=== PATIENT | male | born 1965 | race Caucasian/White ===

== ENCOUNTER 2018-03-10 17:05 | Emergency (ER) | payer BC ==
--- NOTE | 2018-03-10 17:59 | EDM.PDOC ---
ED HPI GENERAL MEDICAL PROBLEM - General Stated Complaint: fishhook Time Seen by Provider: 03/10/18 17:33 Source of Information: Reports: Patient History Limitations: Reports: No Limitations - History of Present Illness INITIAL COMMENTS - FREE TEXT/NARRATIVE: This is a 52yo M here for a left thumb fish hook injury. This happened a few hours ago. He denies any current issues and has had a recent tetanus within the past 5 years. Onset: Today, Sudden Location: Reports: Upper Extremity, Left Improves with: Reports: None Worsens with: Reports: Movement Associated Symptoms: Reports: No Other Symptoms Left Hand Pain Score (Numeric/FACES): 1 - Related Data Allergies Allergy/AdvReac Type Severity Reaction Status Date / Time Sulfa (Sulfonamide Allergy Rash Verified 03/10/18 17:15 Antibiotics) Home Meds: Home Meds Aspirin [Lo-Dose Aspirin EC] 81 mg PO DAILY 03/10/18 [History] Simvastatin [Zocor] 20 mg PO DAILY 03/10/18 [History] Review of Systems - Review of Systems Review Of Systems: ROS reveals no pertinent complaints other than HPI. ED EXAM, GENERAL - Physical Exam Exam: See Below Exam Limited By: No Limitations General Appearance: Alert, WD/WN, No Apparent Distress Nose: Normal Inspection Throat/Mouth: Normal Inspection Respiratory/Chest: No Respiratory Distress Cardiovascular: Normal Peripheral Pulses, Regular Rate, Rhythm GI/Abdominal: Normal Bowel Sounds Back Exam: Normal Inspection Extremities: Normal Inspection Neurological: Alert, Oriented, CN II-XII Intact Skin Exam: Wound/Incision ED TRAUMA EXTREMITY PROCEDURES - Additional/Other Procedure(s) Other (Free Text) Procedure(s): Fish hook removal. Left thumb prepared with alcohol and injected 0.5mL lidocaine 1%. 22 ga needle used to retract hook with cori. No complications. Course - Vital Signs Last Recorded V/S: Last Vital Signs Temp 36.6 C 03/10/18 17:25 Pulse 85 03/10/18 17:25 Resp 16 03/10/18 17:25 BP 145/85 H 03/10/18 17:25 Pulse Ox 97 03/10/18 17:25 Departure - Departure Time of Disposition: 17:45 Disposition: Home, Self-Care 01 Condition: Good Clinical Impression: Fish hook injury of left thumb - Discharge Information Instructions: Puncture Wound, [id number] Referrals: PCP,None [Primary Care Provider] - - Problem List & Annotations (1) Fish hook injury of left thumb SNOMED Code(s): 591445253 Code(s): S69.92XA - UNSP INJURY OF LEFT WRIST, HAND AND FINGER(S), INIT ENCNTR Status: Acute Current Visit: Yes Qualifiers: Encounter type: initial encounter Qualified Code(s): S69.92XA - Unspecified injury of left wrist, hand and finger(s), initial encounter - Problem List Review Problem List Initiated/Reviewed/Updated: Yes - Assessment/Plan Plan: Patient counseled on wound care and follow up as needed. Discussed monitoring for infection and rtc for recheck.
== END 2018-03-10 17:45 | disposition home or self-care (01) ==
LOC: LB.ED 17:05
DX: S60.352A Superficial foreign body of left thumb, initial encounter (principal); Z88.2 Allergy status to sulfonamides; Z79.899 Other long term (current) drug therapy; Z79.82 Long term (current) use of aspirin; W45.8XXA Other foreign body or object entering through skin, initial encounter
CPT/HCPCS: 99283